=== PATIENT | female | born 1990 ===

== ENCOUNTER 2017-07-03 03:45 | Inpatient (IN) ==
[2017-07-03] MEDS ORDERED: BUTORPHANOL 2 MG/ML VIAL IV PRN (03:53)
[2017-07-03] MEDS ORDERED: MEPERIDINE 50 MG/1 ML VIAL IV PRN (03:53)
[2017-07-03] MEDS ORDERED: ONDANSETRON 4 MG/2 ML VIAL IV PRN ×2 (03:53→08:23)
[2017-07-03] MEDS ORDERED: METHYLERGONOVINE 0.2 MG/1 ML AMP ONE (03:56)
[2017-07-03] MEDS ORDERED: OXYTOCIN 10 UNIT/ML VIAL ONE (03:56)
[2017-07-03] MEDS ORDERED: OXYTOCIN/LR 20 UNIT/1,000 ML BAG IV ONE ×3 (03:56→08:23)
[2017-07-03] MEDS ORDERED: SODIUM CHLORIDE 0.9% 1,000 ML IV PRN ×3 (03:58→07:39)
[2017-07-03] MEDS ORDERED: LACTATED RINGERS 1,000 ML IV SCH ×2 (04:00→08:23)
[2017-07-03 04:17] LABS: Basophils % 0.3 % (0.0-0.8); Eosinophils # 0.2 10*3/uL (0.0-0.87); Eosinophils % 1.6 % (0.00-10.9); Hematocrit 24.4 VOL% (35.7-47.0); Hemoglobin 8.1 GM/DL (12.0-16.0); Immature Granulocytes % 0.9 %; Immature Granulocytes Absolute 0.11 #; Lymphocytes # 1.4 10*3/uL (1.4-4.0); Lymphocytes % 11.7 % (21.3-54.2); Mean Corpuscular HGB Conc 33.2 GM/DL (32-36); Mean Corpuscular Hemoglobin 27 PG (27-34); Mean Corpuscular Volume 81.1 FL (87-102); Mean Platelet Volume 12.1 FL (9.6-12.0); Monocytes # 0.8 10*3/uL (0.11-0.8); Monocytes % 6.4 % (1.7-12.7); Neutrophils # 9.4 10*3/uL (1.4-7.4); Neutrophils % 79.1 % (38.7-73.9); Platelet Count 82 T/CUMM (130-400); Red Blood Count 3.01 MC/CUMM (3.8-5.5); Red Cell Distribution Width 13.9 % (9.3-17.3); White Blood Count 11.9 T/CUMM (4-12)
[2017-07-03 04:33] LABS: Cord Venous Blood HCO3 11.4 MMOL/L; Cord Venous Blood PO2 17.7
[2017-07-03 04:36] LABS: Alanine Aminotransferase 10 U/L (13-56); Albumin 2.1 G/DL (3.4-5.0); Alkaline Phosphatase 181 U/L (45-117); Aspartate Amino Transferase 19 U/L (0-37); Bilirubin,Total < 0.39 MG/DL (0.2-1.0); Blood Urea Nitrogen 17 MG/DL (7-18); Calcium 7.8 MG/DL (8.5-10.1); Glucose 92 MG/DL (74-106); Osmolality,Calculated 284.1 MOS/KG (273-304); Potassium 4.3 MMOL/L (3.5-5.1); Sodium 142 MMOL/L (136-145); Total Protein 5.1 G/DL (6.4-8.3)
[2017-07-03 04:36] LABS: Cord Arterial Blood HCO3 9.5 MMOL/L
[2017-07-03 05:05] LABS: Giant Platelets Few; Hypochromasia 1+; Microcytosis Slight; Ovalocytes Slight; Platelet Estimate Decreased
[2017-07-03] MEDS ORDERED: NALOXONE 0.4 MG/ML VIAL IV PRN ×2 (05:22→09:27)
[2017-07-03] MEDS ORDERED: MORPHINE PCA 30 MG/30 ML SYRINGE IV ONE (05:29)
[2017-07-03] MEDS ORDERED: MORPHINE PCA 30 MG/30 ML SYRINGE IV SCH ×2 (05:30→09:30)
[2017-07-03] MEDS ORDERED: fentaNYL 100 MCG/2 ML VIAL ONE (05:37)
[2017-07-03] MEDS ORDERED: SEVOFLURANE 1 UNIT/15 MINUTE INH ONE (05:37)
[2017-07-03] MEDS ORDERED: ONDANSETRON 4 MG/2 ML VIAL ONE (05:37)
[2017-07-03] MEDS ORDERED: PROPOFOL 200 MG/20 ML VIAL IV ONE ×2 (05:37→05:38)
[2017-07-03] MEDS ORDERED: MIDAZOLAM 2 MG/2 ML VIAL ONE (05:37)
[2017-07-03] MEDS ORDERED: SUCCINYLCHOLINE 200 MG/10 ML VIAL ONE (05:38)
[2017-07-03] MEDS ORDERED: ACETAMINOPHEN 325 MG TABLET PO PRN (08:23)
[2017-07-03] MEDS ORDERED: RHO(D) IMMUNE GLOBULIN 300 MCG SYRINGE IM ONE (08:23)
[2017-07-03] MEDS ORDERED: SIMETHICONE CHEW 80 MG TABLET PO PRN (08:23)
[2017-07-03] MEDS: ceFAZolin 1,000 MG in SYRINGE 1 EACH IV SCH ×2 (12:58→21:12)
[2017-07-03 17:28] LABS: Hematocrit 29.5 VOL% (35.7-47.0)
[2017-07-03] MEDS: MULTIVITAMIN (PRENATAL) TABLET PO SCH (19:10)
[2017-07-03] MEDS: DOCUSATE SODIUM 100 MG CAPSULE PO SCH ×2 (19:10→20:43)
[2017-07-03] MEDS: IBUPROFEN 800 MG TABLET PO PRN (20:43)
[2017-07-03] MEDS: MAGNESIUM HYDROXIDE SUSP 30 ML UDCUP PO PRN (20:43)
[2017-07-04 06:07] LABS: Basophils % 0.3 % (0.0-0.8); Eosinophils # 0.1 10*3/uL (0.0-0.87); Eosinophils % 0.9 % (0.00-10.9); Hematocrit 26.2 VOL% (35.7-47.0); Hemoglobin 8.8 GM/DL (12.0-16.0); Immature Granulocytes % 1.1 %; Immature Granulocytes Absolute 0.13 #; Lymphocytes % 16.4 % (21.3-54.2); Mean Corpuscular HGB Conc 33.6 GM/DL (32-36); Mean Corpuscular Hemoglobin 28 PG (27-34); Mean Corpuscular Volume 84.5 FL (87-102); Mean Platelet Volume 12.2 FL (9.6-12.0); Monocytes # 0.9 10*3/uL (0.11-0.8); Monocytes % 7.3 % (1.7-12.7); Platelet Count 84 T/CUMM (130-400); Red Cell Distribution Width 15.8 % (9.3-17.3); White Blood Count 12.2 T/CUMM (4-12)
[2017-07-04 06:32] LABS: Microcytosis 1+
[2017-07-04 06:33] LABS: Hypochromasia 1+; Ovalocytes Slight; Platelet Estimate Decreased
[2017-07-04] MEDS: MULTIVITAMIN (PRENATAL) TABLET PO SCH (08:08)
[2017-07-04] MEDS: DOCUSATE SODIUM 100 MG CAPSULE PO SCH ×2 (08:08→20:55)
[2017-07-04] MEDS: IBUPROFEN 800 MG TABLET PO PRN ×2 (13:52→23:32)
[2017-07-04] MEDS: oxyCODONE/ACETAMINOPHEN 5-325 MG TABLET PO PRN ×2 (13:53→20:55)
[2017-07-04] MEDS: MAGNESIUM HYDROXIDE SUSP 30 ML UDCUP PO PRN (20:55)
[2017-07-04] MEDS ORDERED: SODIUM CHLORIDE 0.9% 1,000 ML IV PRN ×2 (21:45→22:38)
[2017-07-04] MEDS: METOCLOPRAMIDE 10 MG TABLET PO SCH (23:32)
[2017-07-05] MEDS: METOCLOPRAMIDE 10 MG TABLET PO SCH ×2 (06:42→12:21)
[2017-07-05 06:53] LABS: Hematocrit 32.6 VOL% (35.7-47.0)
[2017-07-05 06:59] LABS: Hemoglobin 11.4 GM/DL (12.0-16.0)
[2017-07-05 07:37] VITALS: BP 131/83
[2017-07-05] MEDS: IBUPROFEN 800 MG TABLET PO PRN (09:41)
[2017-07-05] MEDS: DOCUSATE SODIUM 100 MG CAPSULE PO SCH (09:44)
[2017-07-05] MEDS: MAGNESIUM HYDROXIDE SUSP 30 ML UDCUP PO PRN (09:44)
[2017-07-05] MEDS: MULTIVITAMIN (PRENATAL) TABLET PO SCH (09:44)
[2017-07-05] MEDS ORDERED: MEASLES/MUMPS/RUBELLA VACCINE 0.5 ML VIAL SUBCUT ONE (11:25)
== END 2017-07-05 12:20 | disposition home or self-care (01) | DRG 540 ==
LOC: N.LAB 03:45 → N.LD 03:48 → N.OB 08:21
PROVIDERS: ADMIT Obstetrics & Gynecology; ATTEND Obstetrics & Gynecology
PROC: LDCSECT (ICD-10-PCS; 2017-07-03 04:00)